=== PATIENT | male | born 1935 | race Caucasian/White ===

== ENCOUNTER 2019-03-02 18:15 | Observation (INO) | payer SELFPAY ==
[~2019-03-02] VITALS: Ht 167.6 cm; Wt 74.8 kg
[2019-03-02] MEDS ORDERED: LEVSOD100 (18:42)
[2019-03-02] MEDS ORDERED: METO50ER PO (18:42)
[2019-03-02 19:24] LABS: Source, Urine Voided
[2019-03-02 19:28] LABS: Appearance, Urine Clear (Clear); Blood, Urine 1+ (Neg); Color, Urine Amber (P-Yellow); Glucose Qualitative, Urine Neg (Neg); Ketones, Urine 1+ (Neg); Leukocyte Esterase, Urine 1+ (Neg); Nitrite, Urine Neg (Neg); Protein, Urine 2+ (Neg); Urobilinogen, Urine 2+ (Normal)
[2019-03-02 19:29] LABS: BASOPHILS ABSOLUTE AUTO 0.01 K/mm3 (0.00-0.23); BASOPHILS PERCENT AUTO 0 % (0-2); EOSINOPHILS ABSOLUTE AUTO 0.02 K/mm3 (0.00-0.68); EOSINOPHILS PERCENT AUTO 0 % (0-6); Hematocrit 41.6 % (37.0-53.0); Hemoglobin 14.1 g/dL (13.5-17.5); IMMATURE GRAN ABSOLUTE AUTO 0.02 K/mm3 (0.00-0.10); IMMATURE GRAN PERCENT AUTO 0 % (0-1); LYMPHOCYTES PERCENT AUTO 4 % (21-46); MONOCYTES ABSOLUTE AUTO 0.11 K/mm3 (0.16-1.47); MONOCYTES PERCENT AUTO 2 % (4-13); Mean Corpuscular HGB 32.3 pg (26.0-34.0); Mean Corpuscular HGB Conc 33.9 g/dL (31.5-36.5); Mean Corpuscular Volume 95 fL (80-100); Mean Platelet Volume 9.8 fL (9.1-12.4); NEUTROPHILS ABSOLUTE AUTO 6.57 K/mm3 (1.96-9.15); NEUTROPHILS PERCENT AUTO 93 % (41-73); Platelet Count 183 K/mm3 (150-400); RDW Coefficient Variation 12.8 % (11.7-14.2); RDW Standard Deviation 44.8 fL (35.1-46.3); Red Blood Cell Count 4.37 M/mm3 (4.30-5.90); White Blood Cell Count 7.03 K/mm3 (4.00-11.30)
[2019-03-02 19:31] LABS: Bilirubin, Urine 1+ (Neg)
[2019-03-02 19:34] LABS: Bacteria Mod /hpf; Mucus Light (0-Heavy); Squamous Epithelial Cells Not Seen /hpf (Few)
[2019-03-02 19:46] LABS: Alanine Aminotransfer (ALT/SGP 350 U/L (12-78); Albumin, Blood 3.3 g/dL (3.4-5.0); Albumin/Globulin Ratio 0.8 (0.8-1.8); Alk Phos 196 U/L (50-136); Anion Gap 8 mmol/L (6-16); Aspartate Aminotrans (AST/SGOT 249 U/L (12-37); Bilirubin, Total 3.9 mg/dL (0.1-1.0); Blood Urea Nitrogen 16 mg/dL (8-24); Bun/Creatinine Ratio 17.3 (12.0-20.0); CO2, Blood 22 mmol/L (21-32); Calcium, Blood 8.5 mg/dL (8.5-10.1); Chloride, Blood 106 mmol/L (98-108); Creatinine, Blood 0.92 mg/dL (0.60-1.20); Globulin, Blood 4.1 g/dL (2.2-4.0); Glomerular Filtration Rate >60 (60-); Glucose, Blood 147 mg/dL (70-99); Potassium, Blood 3.8 mmol/L (3.5-5.5); Sodium, Blood 136 mmol/L (136-145); Total Protein, Blood 7.4 g/dL (6.4-8.2)
[2019-03-02] MEDS ORDERED: METO25 PO (21:23)
[2019-03-02] MEDS ORDERED: Lovastatin20 MG PO (21:23)
[2019-03-02] MEDS ORDERED: OMEPRAZOLE MAGN20 MG PO (21:23)
[2019-03-02] MEDS ORDERED: OMEPRAZOLE MAGN20 MG (21:23)
[2019-03-02] MEDS ORDERED: LEVSOD137 PO (21:23)
[2019-03-02] MEDS ORDERED: TERA5 PO (21:24)
[2019-03-03 02:17] LABS: Adenovirus Not Detected (NOT DETECT); Bordetella pertussis Not Detected (NOT DETECT); Chlamydophila pneumoniae Not Detected (NOT DETECT); Coronavirus 229E Not Detected (NOT DETECT); Coronavirus HKU1 Not Detected (NOT DETECT); Coronavirus NL63 Not Detected (NOT DETECT); Coronavirus OC43 Not Detected (NOT DETECT); Human Metapneumovirus Not Detected (NOT DETECT); Human Rhinovirus/Enterovirus Not Detected (NOT DETECT); Influenza A Not Detected (NOT DETECT); Influenza A/2009-H1 Not Detected (NOT DETECT); Influenza A/H1 Not Detected (NOT DETECT); Influenza A/H3 Not Detected (NOT DETECT); Influenza B Not Detected (NOT DETECT); Mycoplasma pneumoniae Not Detected (NOT DETECT); Parainfluenza Virus 1 Not Detected (NOT DETECT); Parainfluenza Virus 2 Not Detected (NOT DETECT); Parainfluenza Virus 3 Not Detected (NOT DETECT); Parainfluenza Virus 4 Not Detected (NOT DETECT); Respiratory Syncytial Virus Not Detected (NOT DETECT)
--- NOTE | 2019-03-03 04:32 | NUR ---
Shift summary: Pt states he's feeling much better. No abdominal pain or nausea reported. Pt tolerating regular food. Admission completed. Pt to CAT scan last pm for abdominal CT. Pt recieving antibx without problems. Urine tea colored. VSS.
[2019-03-03 04:55] LABS: BASOPHILS ABSOLUTE AUTO 0.02 K/mm3 (0.00-0.23); BASOPHILS PERCENT AUTO 0 % (0-2); EOSINOPHILS ABSOLUTE AUTO 0.04 K/mm3 (0.00-0.68); EOSINOPHILS PERCENT AUTO 0 % (0-6); Hematocrit 36.7 % (37.0-53.0); IMMATURE GRAN ABSOLUTE AUTO 0.05 K/mm3 (0.00-0.10); IMMATURE GRAN PERCENT AUTO 0 % (0-1); LYMPHOCYTES ABSOLUTE AUTO 0.98 K/mm3 (0.84-5.20); LYMPHOCYTES PERCENT AUTO 8 % (21-46); MONOCYTES ABSOLUTE AUTO 0.71 K/mm3 (0.16-1.47); MONOCYTES PERCENT AUTO 6 % (4-13); Mean Corpuscular HGB 31.6 pg (26.0-34.0); Mean Corpuscular HGB Conc 32.7 g/dL (31.5-36.5); Mean Corpuscular Volume 97 fL (80-100); Mean Platelet Volume 9.9 fL (9.1-12.4); NEUTROPHILS ABSOLUTE AUTO 10.49 K/mm3 (1.96-9.15); NEUTROPHILS PERCENT AUTO 85 % (41-73); Platelet Count 153 K/mm3 (150-400); RDW Coefficient Variation 13.1 % (11.7-14.2); RDW Standard Deviation 46.8 fL (35.1-46.3); White Blood Cell Count 12.29 K/mm3 (4.00-11.30)
[2019-03-03 05:10] LABS: Anion Gap 8 mmol/L (6-16); Blood Urea Nitrogen 17 mg/dL (8-24); Bun/Creatinine Ratio 16.5 (12.0-20.0); CO2, Blood 23 mmol/L (21-32); Calcium, Blood 7.7 mg/dL (8.5-10.1); Chloride, Blood 109 mmol/L (98-108); Creatinine, Blood 1.03 mg/dL (0.60-1.20); Glomerular Filtration Rate >60 (60-); Glucose, Blood 185 mg/dL (70-99); Sodium, Blood 140 mmol/L (136-145)
[2019-03-03 05:13] LABS: International Normalized Ratio 1.2; Prothrombin Time Results 12.5 Sec (9.7-11.5)
--- NOTE | 2019-03-03 11:00 | NUR ---
ROUNDED. ISOLATION DC'D BECAUSE STOOL PANEL DC'D. HE DENIES ANY DIARRHEA AT HOME THOUGH STOOL WAS LOOSE. HE JUST HAD A FORMED BROWN BM AND THEN WALKED AROUND THE WHOLE UNIT. NO COMPLAINTS. HOPES TO GO HOME.
--- NOTE | 2019-03-03 15:37 | NUR ---
DISCHARGED TO HOME AT 1435 WITH BELONGINGS AND INSTRUCTIONS. NO NEW MEDICATIONS. NO COMPLAINTS. VERY HAPPY TO GO HOME.
== END 2019-03-03 14:34 | disposition home or self-care (01) ==
LOC: ER 18:15 → MEDS 18:16 → ER 20:56 → MEDS 20:56
PROVIDERS: Emergency Medicine; Nurse Practitioner Acute Care; ADMIT Internal Medicine
DX: R11.2 Nausea with vomiting, unspecified (principal); R19.7 Diarrhea, unspecified; G92 Toxic encephalopathy; A41.9 Sepsis, unspecified organism; R65.10 Systemic inflammatory response syndrome (SIRS) of non-infectious origin without acute organ dysfunction; J18.1 Lobar pneumonia, unspecified organism; E03.9 Hypothyroidism, unspecified; I10 Essential (primary) hypertension; Z79.899 Other long term (current) drug therapy
CPT/HCPCS: 36415; 71046; 74177; 76705; 80048; 80053; 81001; 82550; 83605; 84145; 84443; 85025; 85610; 87086; 87486; 87581; 87633; 87798; 93005; 93010; 96361; 96365; 99285-25; G0378; J0456; J0696; J2765; J7030; J7050; J7120; Q9967

== ENCOUNTER 2020-04-03 05:28 | Day surgery (SDC) | payer OTHER ==
[~2020-04-03] VITALS: Ht 177.8 cm; Wt 84.0 kg
[~2020-04-03 05:28] MED LIST: Aspir 8181 MG PO; LEVSOD100; LEVSOD137 PO; Lovastatin20 MG PO; METO25 PO; METO50ER PO; OMEPRAZOLE MAGN20 MG; OMEPRAZOLE MAGN20 MG PO; TERA5 PO; ZYRTEC10 M2 PO
[2020-04-03] MEDS ORDERED: CLOP75 PO (06:27)
[2020-04-03] MEDS ORDERED: Isosorbide Mono30 MG PO (07:41)
--- NOTE | 2020-04-03 07:48 | NUR ---
DR FARRAR PREVIOUSLY TO BEDSIDE. PLAN FOR POTENTIAL TRANSFER TO [facility] IN [facility] FOR BYPASS SURGERY. PT C/O 01/27 CHEST DISCOMFORT. CONTINUES ON FIRE TECHNICIAN. VSS. TR BAND ON RIGHT WRIST WITH AIR IN, SITE SOFT NON TENDER WITH NO ACTIVE BLEEDING, OOZING, OR PAIN NOTED. PT TOLERATES PO FLUIDS WITH NO DIFFICULTIES. CALL LIGHT IN REACH. WILL CONTINUE TO MONITOR.
--- NOTE | 2020-04-03 09:36 | NUR ---
RIGHT WRIST TR BAND HAS BEEN FULLY DEFLATED, REMAINS ON ALONG WITH ARM BOARD. SITE SOFT NON TENDER WITH NO ACTIVE BLEEDING, OOZING, OR PAIN NOTED. PT REPORTS DECREASED DISCOMFORT IN CHEST. VSS. WILL CONTINUE TO MONITOR.
--- NOTE | 2020-04-03 10:44 | NUR ---
PT MEDICATED WITH SL NITRO FOR 5/[address] PAIN PER DR. FARRAR ORDER. VSS AT THIS TIME. WILL CONTINUE TO MONITOR.
--- NOTE | 2020-04-03 10:55 | NUR ---
PT REPORTS DECREASED CP AT 10/29, "IT'S SLIGHT" NOW C/O HEADACHE. EDUCATED PT ON SIDE EFFECTS RELATED TO NITROGLYCERIN, PT VERBALIZED UNDERSTANDING. PT REMOVED FROM RECLINER AND PLACED ON GUREARTH PER DR FARRAR REQUEST. AT BEDSIDE. AWAITING ROOM ASSIGNMENT FROM CANDACE. CHERIE. CALL LIGHT IN REACH.
--- NOTE | 2020-04-03 13:06 | NUR ---
PT DENIES CP AT THIS TIME. HEPARIN DRIP INFUSING ORDERED. RIGHT WRIST WITH RED CLOTH DOT DRESSING INTACT. ARM BOARD ON FOR SUPPORT. BP ELEVATED, DR FARRAR NOTIFIED. AWAITING NEW ORDERS. PT DENIES ANY NEEDS AT THIS TIME. CALL LIGHT IN REACH.
--- NOTE | 2020-04-03 15:09 | NUR ---
TRANSPORTATION SET UP FOR TRANSFER TO [facility]. RIGHT WRIST REMAINS SOFT NON TENDER WITH NO ACTIVE BLEEDING, OOZING, OR PAIN. ARM BOARD ON FOR SUPPORT. PT'S PERSONAL BELONGINGS PLACED INTO BAGS FOR HIM, PROVIDED WITH SNACK. HEPARIN CONTINUES TO INFUSE. CALL LIGHT IN REACH, AWAITING CALL FROM CANDACE RN TO GIVE REPORT.
--- NOTE | 2020-04-03 15:38 | NUR ---
PT TRANSFERED TO EMS [facility], ALL PERSONAL BELONGINGS SENT WITH PT. REPORT CALLED TO ANTWAN ZAIDI AT [facility]. PT STABLE AT TIME OF TRANSFER.
== END 2020-04-03 16:39 | disposition short-term general hospital (02) ==
LOC: MHTC 05:28
DX: I25.10 Atherosclerotic heart disease of native coronary artery without angina pectoris (principal); I25.82 Chronic total occlusion of coronary artery; T82.855A Stenosis of coronary artery stent, initial encounter; Y83.1 Surgical operation with implant of artificial internal device as the cause of abnormal reaction of the patient, or of later complication, without mention of misadventure at the time of the procedure; E78.5 Hyperlipidemia, unspecified; E03.9 Hypothyroidism, unspecified; Z79.82 Long term (current) use of aspirin; Z79.899 Other long term (current) drug therapy; Z87.891 Personal history of nicotine dependence; E66.3 Overweight; Z68.28 Body mass index [BMI] 28.0-28.9, adult
CPT/HCPCS: 93458; 99152; C1769; C1894; J1644; J2250; J3010; J7030; Q9967

== ENCOUNTER 2024-12-20 16:04 | Inpatient (IN) | payer OTHER ==
[~2024-12-20] VITALS: Ht 177.8 cm; Wt 89.5 kg
[~2024-12-20 16:04] MED LIST changes: +CLOP75 PO; +Isosorbide Mono30 MG PO
[2024-12-20] MEDS ORDERED: Ondansetron HCl 2 MG / ML 2ML Vial IV PRN ×2 (16:20→23:15)
[2024-12-20 16:56] LABS: BASOPHILS ABSOLUTE AUTO 0.04 K/mm3 (0.00-0.23); BASOPHILS PERCENT AUTO 0 % (0-2); EOSINOPHILS ABSOLUTE AUTO 0.01 K/mm3 (0.00-0.68); EOSINOPHILS PERCENT AUTO 0 % (0-6); Hematocrit 43.1 % (37.0-53.0); Hemoglobin 15.1 g/dL (13.5-17.5); IMMATURE GRAN ABSOLUTE AUTO 0.14 K/mm3 (0.00-0.10); IMMATURE GRAN PERCENT AUTO 1 % (0-1); LYMPHOCYTES ABSOLUTE AUTO 0.99 K/mm3 (0.84-5.20); LYMPHOCYTES PERCENT AUTO 4 % (21-46); MONOCYTES ABSOLUTE AUTO 1.65 K/mm3 (0.16-1.47); MONOCYTES PERCENT AUTO 7 % (4-13); Mean Corpuscular HGB 31.5 pg (26.0-34.0); Mean Corpuscular Volume 90 fL (80-100); Mean Platelet Volume 10.1 fL (9.1-12.4); NEUTROPHILS ABSOLUTE AUTO 19.49 K/mm3 (1.96-9.15); NEUTROPHILS PERCENT AUTO 87 % (41-73); Platelet Count 219 K/mm3 (150-400); RDW Coefficient Variation 12.4 % (11.7-14.2); RDW Standard Deviation 41.1 fL (35.1-46.3); Red Blood Cell Count 4.79 M/mm3 (4.30-5.90); White Blood Cell Count 22.32 K/mm3 (4.00-11.30)
[2024-12-20 17:17] LABS: Albumin, Blood 2.9 g/dL (3.4-5.0); Albumin/Globulin Ratio 0.6 (0.8-1.8); Bilirubin, Total 1.2 mg/dL (0.1-1.0); Bun/Creatinine Ratio 16.8 (12.0-20.0); Creatinine, Blood 0.95 mg/dL (0.60-1.20); Globulin, Blood 5.2 g/dL (2.2-4.0); Potassium, Blood 4.3 mmol/L (3.5-5.5); Total Protein, Blood 8.1 g/dL (6.4-8.2)
[2024-12-20] MEDS ORDERED: NS 1,000 ML IV SCH ×2 (18:50→21:00)
[2024-12-20] MEDS ORDERED: Azithromycin 500 MG in NS 250 ML IV ONE (20:10)
[2024-12-20] MEDS ORDERED: CefTRIAXone Sodium 1,000 MG in NS 50 ML IV ONE (20:10)
[2024-12-20] MEDS ORDERED: MetroNIDAZOLE 500MG/NS 100 ml 100 ML IV ONE (20:45)
[2024-12-20] MEDS ORDERED: Metoprolol Tartrate 1 MG/ML 5 ML VIAL IV ONE (21:00)
[2024-12-20] MEDS ORDERED: FentaNYL Citrate 50 MCG/ML 2 ML Injection IV PRN ×2 (21:00→23:20)
[2024-12-20 23:03] LABS: Source, Urine Clean Catch
[2024-12-20] MEDS ORDERED: Morphine Sulfate 4 MG/1 ML Injection IV ONE (23:05)
[2024-12-20 23:06] LABS: Bilirubin, Urine Neg (Neg); Blood, Urine 3+ (Neg); Glucose Qualitative, Urine Neg (Neg); Ketones, Urine 1+ (Neg); Leukocyte Esterase, Urine 1+ (Neg); Nitrite, Urine Neg (Neg); Protein, Urine 2+ (Neg); Urobilinogen, Urine 1+ (Normal)
[2024-12-20] MEDS ORDERED: NS 1,000 ML IV ONE (23:15)
[2024-12-20] MEDS ORDERED: FLU VACC TS2024-25(6MOS UP)/PF 45 MCG/0.5 ML SYRINGE IM ONE (23:15)
[2024-12-20] MEDS ORDERED: Ampicillin Sod/Sulbactam Sod 3 GM in NS 100 ML IV SCH (23:20)
[2024-12-20 23:27] LABS: Appearance, Urine Hazy (Clear); Color, Urine Yellow (P-Yellow); Red Blood Cells, Urine 0-2 /hpf (0-2); White Blood Cells, Urine 0-2 /hpf (0-5)
[2024-12-20 23:28] LABS: Amorphous Light (0-Heavy); Bacteria Rare /hpf; Granular Casts 0-2 /lpf (0); Squamous Epithelial Cells Not Seen /hpf (Few)
[2024-12-21] VITALS (23 sets, daily range): BP systolic 103–156; BP diastolic 62–742
--- NOTE | 2024-12-21 02:14 | NUR ---
ARRIVAL TO PCU ROOM 11 [place] SLIDE OVER TO PCU BED BY 4 STAFF MEMBERS. PATIENT EDUCATED ON UNIT POLICIES AND PRODEDURES, ROUNDING TIMES, CALL LIGHT, AND SAFETY. PT HAVING 6 OUT OF 10 PAIN ON PAIN SCALE, DENIES NEED OF PAIN MEDICATION AT THIS TIME. PATIENT SHOWING AFLUTTER RATE OF 121 AT TIMES TOUCHING THE 140s, NO CHEST PAIN REPORTED. SATTING IN THE LOW 80s ON ARRIVAL PLACED IN 3 LITERS NC. CONTINUS PULSE OX PLACED FOR MONITORING. BED IN LOWEST POSTION FOR SAFETY, CALL LIGHT IN REACH. SURGICAL CONSULT CALLED IN
[2024-12-21] MEDS ORDERED: Metoprolol Tartrate 1 MG/ML 5 ML VIAL IV PRN (02:20)
--- NOTE | 2024-12-21 04:20 | NUR ---
SHIFT SUMMARY PT RESTING IN BED AT THIS TIME, MEDICATED FOR PAIN PER EMAR. HR TOUCHING THE 140s/150s LOPRESSOR PUSH IV GIVEN HR NOW IN THE 90s SHOWING AFIB ON THE MONITOR. BP STABLE. LR INFUSING PER EMAR. BED IN LOWEST POSTION FOR SAFETY, CALL LIGHT IN REACH. WILL CONTINUE WITH PLAN OF CARE AND REPORT TO ONCOMING RN
[2024-12-21 05:00] LABS: BASOPHILS ABSOLUTE AUTO 0.06 K/mm3 (0.00-0.23); BASOPHILS PERCENT AUTO 0 % (0-2); EOSINOPHILS ABSOLUTE AUTO 0.07 K/mm3 (0.00-0.68); EOSINOPHILS PERCENT AUTO 0 % (0-6); Hematocrit 39.9 % (37.0-53.0); Hemoglobin 13.9 g/dL (13.5-17.5); IMMATURE GRAN ABSOLUTE AUTO 0.29 K/mm3 (0.00-0.10); IMMATURE GRAN PERCENT AUTO 1 % (0-1); LYMPHOCYTES ABSOLUTE AUTO 0.66 K/mm3 (0.84-5.20); LYMPHOCYTES PERCENT AUTO 3 % (21-46); MONOCYTES PERCENT AUTO 4 % (4-13); Mean Corpuscular HGB 31.5 pg (26.0-34.0); Mean Corpuscular HGB Conc 34.8 g/dL (31.5-36.5); Mean Corpuscular Volume 91 fL (80-100); Mean Platelet Volume 10.5 fL (9.1-12.4); NEUTROPHILS ABSOLUTE AUTO 20.47 K/mm3 (1.96-9.15); NEUTROPHILS PERCENT AUTO 91 % (41-73); Platelet Count 200 K/mm3 (150-400); RDW Coefficient Variation 12.8 % (11.7-14.2); Red Blood Cell Count 4.41 M/mm3 (4.30-5.90); White Blood Cell Count 22.55 K/mm3 (4.00-11.30)
[2024-12-21 05:54] LABS: Albumin, Blood 2.5 g/dL (3.4-5.0); Albumin/Globulin Ratio 0.6 (0.8-1.8); Bilirubin, Total 4.3 mg/dL (0.1-1.0); Calcium, Blood 8.3 mg/dL (8.5-10.1); Creatinine, Blood 1.12 mg/dL (0.60-1.20); Free Thyroxine 1.08 ng/dL (0.70-1.60); Globulin, Blood 4.5 g/dL (2.2-4.0); Potassium, Blood 4.5 mmol/L (3.5-5.5); Thyroid Stimulating Hormone 4.66 uIU/mL (0.360-4.800)
[2024-12-21] MEDS ORDERED: Omeprazole 20 MG CapCR PO SCH (06:00)
[2024-12-21] MEDS ORDERED: Levothyroxine Sodium 0.137 MG Tab PO SCH (06:00)
[2024-12-21] MEDS ORDERED: Insulin Human Lispro 100 Units/ML 3ML Syringe SC SCH ×2 (06:00→07:30)
[2024-12-21 09:00] LABS: Anti-Xa UFH, PHA Monitoring <0.10 IU/mL; International Normalized Ratio 1.12; Prothrombin Time Results 11.9 Sec (9.7-11.5)
[2024-12-21] MEDS ORDERED: Isosorbide Mononitrate 30 MG TABCR PO SCH (09:00)
[2024-12-21] MEDS ORDERED: Metoprolol Tartrate 25 MG Tab PO SCH (09:00)
[2024-12-21] MEDS ORDERED: Clopidogrel Bisulfate 75 MG Tab PO SCH (09:00)
[2024-12-21] MEDS ORDERED: Aspirin 81 MG TabEC PO SCH (09:00)
--- NOTE | 2024-12-21 10:59 | NUR ---
ASSUMPTION OF CARE: THIS RN TO ASSUME CARE OF PT. REPORT FROM CHEN SANTIAGO. PT RESTING IN BED WITH EQUAL NONLABORED RESPIRATIONS. PT ON 2L NC DUE TO DESAT WHILE SLEEPING PER PACKAGING CLERK RN. PT ON CARDIAC AND VS MONITORING. VSS. NADN. PT SLEEPING BUT EASILY ARROUSABLE. NS RUNNING AT 75ML/HR. PT DENIES ANY NEEDS AT THIS TIME. BED IN LOW POSITION. CALL LIGHT IN REACH.
[2024-12-21] MEDS ORDERED: Indocyanine Green 25 MG Vial IV ONE (11:00)
[2024-12-21] MEDS ORDERED: Atropine Sulfate 0.1 MG/ML 10ML SYR XX ONE (12:09)
[2024-12-21] MEDS ORDERED: DOPamine 400 MG/Dextrose 250 ML Bag IV ONE (12:09)
[2024-12-21] MEDS ORDERED: Lactated Ringer's 1,000 ML IV SCH (15:25)
[2024-12-21] MEDS ORDERED: propofoL 20 ML IV ONE (15:52)
[2024-12-21] MEDS ORDERED: Rocuronium Bromide 10 MG/ML 5ML Injection IV ONE (15:52)
[2024-12-21] MEDS ORDERED: FentaNYL Citrate 50 MCG/ML 2 ML Injection ONE (15:53)
--- NOTE | 2024-12-21 16:32 | NUR ---
PT BROUGHT FROM PCU TO DAY SURGERY FOR PROCEDURE. VSS. PT ON TELE & 2L O2 VIA NC. PT A&OX3. PT ON TELEPHONE TO CONSENT FOR PROCEDURE WITH SURGEON AND ANESTHESIA. PT AND HIS BOTH POOR HISTORIAN ON MEDICATION RECONCILATION. NPO STATUS CONFIRMED WITH PATTERN CHART WRITER. PT HAS 20G IV TO RIGHT AC THAT FLUSHES WELL AND FLOWS TO GRAVITY. PT BELONGINGS LEFT IN PERSONAL ROOM ON PCU.
[2024-12-21] MEDS ORDERED: Bupivacaine 0.5% HCl 5 MG/ML 30MLVIAL ONE (16:40)
[2024-12-21] MEDS ORDERED: Lidocaine HCl 4% 5 ML SDA ONE (16:54)
[2024-12-21] MEDS ORDERED: Sugammadex Sodium 200 MG/2ML SDV (100 MG/ML) ONE (17:50)
--- NOTE | 2024-12-21 18:47 | NUR ---
SHIFT SUMMARY: NEURO: A&OX3. FOLLOWS COMMANDS AND MAKES NEEDS KNOWN TO STAFF. CARDIAC: NSR. DENIES ANY CP. RESP: ON 1L NC DUE TO DESAT WHILE SLEEPING. DENIES ANY SOB. GI/: RAMOS REMAINS IN PLACE AND IS DRAINING DARK GE/RED URINE. PT HAS NOT HAD MUCH URINARY OUTPUT TODAY DISPITE MAINTAINANCE FLUID. PT REPORTS RUQ ABD PAIN THAT WAS RELIEVED WITH PAIN MEDS. PT TAKEN FOR LAPCHOLE THIS AFTERNOON AT APPROX 1550 AND HAS NOT RETURNED BACK TO ROOM AT THIS TIME. NO OTHER SIGNIFICANT EVENTS HAPPENED DURING THIS SHIFT. WILL CONTINUE TO CARE FOR PT TILL END OF SHIFT.
[2024-12-21] MEDS ORDERED: Lactobacil 2-S.Thermo-Bifido 1 1 Cap PO SCH (21:00)
[2024-12-21] MEDS ORDERED: Doxazosin Mesylate 2 MG Tab PO SCH (21:00)
[2024-12-22] VITALS (11 sets, daily range): BP systolic 95–144; BP diastolic 62–84
[2024-12-22 03:45] LABS: Hemoglobin 11.5 g/dL (13.5-17.5); Mean Corpuscular HGB 31.3 pg (26.0-34.0); Mean Corpuscular HGB Conc 33.8 g/dL (31.5-36.5); Mean Corpuscular Volume 92 fL (80-100); Mean Platelet Volume 10.1 fL (9.1-12.4); Platelet Count 191 K/mm3 (150-400); RDW Coefficient Variation 13.2 % (11.7-14.2); RDW Standard Deviation 44.6 fL (35.1-46.3); Red Blood Cell Count 3.68 M/mm3 (4.30-5.90); White Blood Cell Count 15.01 K/mm3 (4.00-11.30)
[2024-12-22 04:06] LABS: Bun/Creatinine Ratio 25.2 (12.0-20.0); Calcium, Blood 7.7 mg/dL (8.5-10.1); Creatinine, Blood 1.23 mg/dL (0.60-1.20); Potassium, Blood 4.6 mmol/L (3.5-5.5)
--- NOTE | 2024-12-22 06:30 | NUR ---
PT STABLE SINCE RETURN FROM SURGERY. PT DID C/O ABD PAIN X1 AND WAS MEDICATED FOR THAT WITH GOOD EFFECT. PT AOX3, ABLE TO MAKE NEEDS KNOWN AND USES CALL LIGHT APPROPRIATELY. PT IS RESIGHINI BUT DOES NOT HAVE HEARING AIDS. PT TOLERATING IV ABX WELL. PT TOLERATING PO FLUIDS WELL. LAP SITES X4 REMAIN CLEAN/DRY/INTACT. LEFT WRIST IV TENDER BUT REMAINS PATENT NO S/S INFILTRATION/LEAKING. SCDS IN PLACE SINCE RETURN FROM OR. RAMOS CONTINUES TO DRAIN WELL AND PT HAD GOOD URINARY OUTPUT. URINE REMAINS GE. BOWEL TONES REMAIN ACTIVE IN ALL QUADRANTS.
[2024-12-22] MEDS ORDERED: Insulin Human Lispro 100 Units/ML 3ML Syringe SC SCH (07:30)
[2024-12-22] MEDS ORDERED: Apixaban 5 MG Tab PO SCH (12:00)
[2024-12-22] MEDS ORDERED: GlipiZIDE 5 MG TabCR PO SCH (12:00)
[2024-12-22 12:16] LABS: Hematocrit 33.5 % (37.0-53.0); Hemoglobin 11.2 g/dL (13.5-17.5)
--- NOTE | 2024-12-22 14:00 | NUR ---
ARRIVAL TO SURGICAL UNIT VIA HOSPITAL BED, ALLOWED TO STAY IN SAME BED. ALERT, ORIENTED. ABD DISTENDED BUT SOFT w/ 4 LAP SITES COVERED w/ WOUND GLUE. LUNGS CLEAR BUT DIM IN R BASE. REPORTS PASSING GAS; DENIES N/V; DISCUSSED ADVANCING DIET TO FULL LQs. WATER & SUGAR FREE PUDDING GIVEN. IV ABX STARTED.
--- NOTE | 2024-12-22 14:00 | NUR ---
SHIFT SUMARY: NO SIGNIFICANT EVENTS HAPPENED DURING THIS SHIFT. PT DENIED [place] COMPLAINTS OR CP, OR SOB. SLIGHT ABD PAIN BUT DID NOT REQUIRE PAIN MEDS. PT TRANSFERED TO SURGICAL FLOOR. BELONGINGS WERE TAKEN WITH PT. REPORT TO MATT Zamudio RN TO ASSUME CARE OF PT.
[2024-12-22] MEDS ORDERED: Docusate Sodium 100 MG Cap PO PRN (16:05)
[2024-12-22] MEDS ORDERED: HYDROcodone 5-APAP 325 TAB PO PRN (16:05)
--- NOTE | 2024-12-22 18:48 | NUR ---
SUMMARY: NO ACUTE CHANGE SINCE RECEIVED REPORT. VSS, PT ABLE TO VOID 100ML DARK URINE. ENCOURAGING PO INTAKE. IV INTIBIOTIC INFUSED. REPORT PASSED TO RYNE SUTHERLAND
[2024-12-23] VITALS (32 sets, daily range): BP systolic 82–138; BP diastolic 61–98
[2024-12-23 04:25] LABS: Hematocrit 32.6 % (37.0-53.0); Hemoglobin 11.1 g/dL (13.5-17.5); Mean Corpuscular HGB 31.5 pg (26.0-34.0); Mean Corpuscular Volume 93 fL (80-100); Mean Platelet Volume 10.2 fL (9.1-12.4); Platelet Count 230 K/mm3 (150-400); RDW Coefficient Variation 13.3 % (11.7-14.2); RDW Standard Deviation 45.1 fL (35.1-46.3); Red Blood Cell Count 3.52 M/mm3 (4.30-5.90)
[2024-12-23 04:53] LABS: Bun/Creatinine Ratio 28.4 (12.0-20.0); Creatinine, Blood 1.02 mg/dL (0.60-1.20); Potassium, Blood 4.2 mmol/L (3.5-5.5)
[2024-12-23] MEDS ORDERED: NS 1,000 ML IV ONE ×2 (06:26→06:33)
[2024-12-23] MEDS ORDERED: Verapamil HCL 2.5 MG/ML 2ML Injection ONE (06:26)
[2024-12-23] MEDS ORDERED: NS 250 ML IV ONE ×2 (06:26→07:52)
[2024-12-23] MEDS ORDERED: Heparin Sodium 1000 Units/ML 10ML MDV ONE ×2 (06:26→07:26)
[2024-12-23] MEDS ORDERED: Nitroglycerin 2 MG/20 ML BTL ONE (06:26)
[2024-12-23] MEDS ORDERED: Midazolam HCl 1MG / ML 2ML Vial ONE (06:32)
[2024-12-23] MEDS ORDERED: FentaNYL Citrate 50 MCG/ML 2 ML Injection ONE (06:32)
[2024-12-23] MEDS ORDERED: Phenylephrine HCl 100 MCG/ML-NS 10MLSYR (1MG/10ML) ONE (06:33)
[2024-12-23] MEDS ORDERED: Atropine Sulfate 0.1 MG/ML 10ML SYR ONE (06:33)
[2024-12-23] MEDS ORDERED: Aspirin 325 MG Tab PO ONE (06:35)
[2024-12-23] MEDS ORDERED: Ticagrelor 90 MG TABLET PO ONE (06:35)
[2024-12-23] MEDS ORDERED: Ticagrelor 90 MG TABLET ONE (06:38)
[2024-12-23] MEDS ORDERED: Aspirin 325 MG Tab ONE (06:38)
--- NOTE | 2024-12-23 06:38 | NUR ---
TRANSFER OFF UNIT BY RTT STAFF AT 0638. REPORT GIVEN TO ICU NURSE TRACY BY THIS RN.
[2024-12-23] MEDS ORDERED: Heparin Sodium 5000 Units/ML 1ML MDV IV ONE (06:40)
[2024-12-23] MEDS ORDERED: Ondansetron HCl 2 MG / ML 2ML Vial ONE (07:11)
[2024-12-23] MEDS ORDERED: Norepinephrine Bitartrate 250 ML IV ONE (07:47)
[2024-12-23] MEDS ORDERED: Amiodarone HCl 50 MG / ML 3 ML Amp ONE (07:51)
[2024-12-23] MEDS ORDERED: NS 100 ML IV ONE (07:52)
[2024-12-23] MEDS ORDERED: Tirofiban HCL Monohydrate 3.75 MG/15 ML Vial ONE (07:55)
[2024-12-23] MEDS ORDERED: Tirofiban HCL M-Hyd/NS 250 ML IV ONE (07:58)
[2024-12-23] MEDS ORDERED: Tirofiban HCL M-Hyd/NS 250 ML IV SCH (08:40)
[2024-12-23] MEDS ORDERED: NS 1,000 ML IV SCH (08:50)
[2024-12-23] MEDS ORDERED: Phentolamine Mesylate 5 MG/2 ML Vial IV SCH (08:55)
[2024-12-23] MEDS ORDERED: Atorvastatin 40 MG Tab PO SCH (09:00)
--- NOTE | 2024-12-23 13:31 | NUR ---
0915: PT RECIEVED FROM AUTO CLOCKS REPAIRER ON BIPAP. VSS; EKG SHOWING AFIB ST ELEVATION FOLLOWING STENT PLACEMENT. IV ACCESS AQUIRED, AMIO GTT STARTED, AGGRASTAT CONTINUED. SLIGHT CHEST/ABD DISCOMFORT, ALL NOTED TO BE STILL FROM AUTO CLOCKS REPAIRER. R GROIN SITE CHECK WDL WITH SMALL AMMOUNT OF BLOOD FROM CATH LABE AND DISTAL PULSES ARE STRONG. 1100: BIPAP WAS ABLE TO COME OFF. PLACED ON 2LNC, URINAL AT BEDSIDE WITH 75 ML VOID. SLIGHT CHEST/ABD DISCOMFORT, SAME BEFORE. GROIN SITE INTACT, DISTAL PULSES FELT. 1315: R GROIN SITE INTACT, SMALL BLOOD NOTED STILL, PATIENT ABLE TO HAVE HOB ELEVATED, LUNCH GIVEN. REMAINS AFIB ON AMIO GTT, 97% ON 2LNC.
[2024-12-23] MEDS ORDERED: CefTRIAXone Sodium 1,000 MG in NS 100 ML IV SCH (14:00)
[2024-12-23] MEDS ORDERED: dexmedeTOMIDine 100 ML IV SCH (16:00)
[2024-12-23] MEDS ORDERED: Furosemide 10 MG / ML 2ML Vial IV SCH (16:00)
--- NOTE | 2024-12-23 16:39 | NUR ---
DR LOYA NOTIFIED OF PATIENT HAVING SOB AND BECOMING AGITATED. PT PLACED ON BIPAP FOR BREATHING SUPPORT, FROM 2LNC. PATIENT AGITATED AND PULLING BIPAP MASK OFF MULTIPLE TIMES, SO BIPAP PLACED ON HOLD FOR NOW. PRECEDEX STARTED AT 0.2 MCG/KG/MIN FOR AGITATION. DR. VERAS AT BEDSIDE, OKAY WITH TREATMENT PLAN.
--- NOTE | 2024-12-23 17:16 | NUR ---
PC NOTE: MET WITH PT IN HIS ROOM. PT IS A/O X 2, SOB AT THIS TIME. RN IS AWARE OF SOB. PT DOES NOT RECALL THE DATE/YEAR. HE BELIEVES IT MIGHT BE OCTOBER. KEPT CONVERSATION QUICK DUE TO HIS SOB. CALLED PT AMITA. SHE REPORTS THEY HAVE BEEN FOR 46 YEARS. DISCUSSED PT SYMPTOMS OF SOB. SHE IS AWARE HE HAD A HEART ATTACK THIS MORNING. DISCUSSED CODE STATUS WITH AMITA. SHE STATED "OH HE NEVER WANTED TO BE A FULL CODE, HE WANTS TO BE A DNR." SHE FURTHER EXPLAINED SHE WAS SHOCKED HE CALLED 911 BECAUSE OF HIS STOMACH PAIN BECAUSE HE TOLD HER HE WOULD NEVER GO TO THE DOCTOR AGAIN. SHE DOES WANT US TO DO ALL TREATMENTS THAT CAN BE DONE BUT DOES NOT WANT CHRISTINA TO HAVE CPR OR BE INTUBATED. SHE STATED "DOING THAT WOULD JUST MAKE THINGS WORSE." SHE STATED SHE IS UNABLE TO COME IN BECAUSE SHE CANNOT DRIVE. SHE LOST HER LICENSE WHEN SHE GOT CATARACTS AND CAN'T SEE WELL ENOUGH AND CANNOT AFFORD CATARACT SURGERY. SHE STATES SHE HAS 2 NIECES THAT CAN BRING HER TO THE HOSPITAL BUT THEY LIVE AND WORK IN [place] [facility] TO ASK THEM FOR A FAVOR. I DID ENCOURAGE HER TO MAKE A VISIT TOMORROW IF SHE IS ABLE TO. CALL PLACED TO DR. LOYA AND HE GAVE PERMISSION TO CHANGE CODE STATUS TO DNR. UPDATED WOODY MONCADA AND CODE STATUS CHANGED TO DNR. DR. LOYA IS AWARE PT IS EXPERIENCING SOB.
[2024-12-23] MEDS ORDERED: Clopidogrel Bisulfate 300 MG Cap PO ONE (19:00)
[2024-12-24] VITALS (22 sets, daily range): BP systolic 92–150; BP diastolic 57–124
[2024-12-24 02:54] LABS: Mean Corpuscular HGB 31.1 pg (26.0-34.0); Mean Corpuscular HGB Conc 33.3 g/dL (31.5-36.5); Mean Corpuscular Volume 93 fL (80-100); Mean Platelet Volume 10.6 fL (9.1-12.4); Platelet Count 261 K/mm3 (150-400); RDW Coefficient Variation 13.4 % (11.7-14.2); RDW Standard Deviation 45.8 fL (35.1-46.3); Red Blood Cell Count 3.22 M/mm3 (4.30-5.90)
[2024-12-24 03:11] LABS: Calcium, Blood 7.8 mg/dL (8.5-10.1); Creatinine, Blood 1.24 mg/dL (0.60-1.20); Magnesium, Blood 2.8 mg/dL (1.6-2.4); Potassium, Blood 4.5 mmol/L (3.5-5.5)
--- NOTE | 2024-12-24 04:15 | NUR ---
SPOKE WITH SAE ABOUT PAUSING AMIODARONE GTT DUE TO PROLONGED QTc. PTS HR AND RHYTHM HAVE BEEN STABLE, HE SAID TO STOP THE GTT AND CAN RESTART IF NEEDED FOR RATE/RHYTHM CONTROL.
--- NOTE | 2024-12-24 05:57 | NUR ---
SHIFT SUMMARY: PT HAS HAD NO COMPLAINT OF CHEST PAIN THROUGHOUT SHIFT. HIS CATH SITE HAD SOME OOZING, NO BRUISING OR TENDERNESS. HE HAS ALTERNATED BETWEEN SINUS RHYTHM AND AFIB, BP REMAINS STABLE. HIS INCISION SITE FROM CHOLECYSTECTOMY ARE CLEAN AND DRY. ABDOMEN IS DISTENDED SOFT AND NONTENDER TO PALPATION. PT COMPLAINED OF SOME ABD PAIN DURING SHIFT THAT RESOLVED. BREATHING IS TACHYPNEIC AND APPEARS LABORED THOUGH PT DENIES DYSPNEA OR SOB. HE WAS ON 2LPM NC THROUGHOUT NIGHT AND TRIALED BIPAP THIS AM BUT HE CONTINUOUSLY REMOVED THE MASK. HE INCREASED IN AGITATION AND COMBATIVENESS THROUGHOUT THE NIGHT DESPITE PRECEDEX GTT. VEST FAM WAS PLACED FOR PATIENT SAFETY. THIS AM HE ALTERNATES BETWEEN SOMNOLENCE AND AGITATION.
[2024-12-24] MEDS ORDERED: Pantoprazole Sodium 20 MG Tab PO SCH (06:00)
[2024-12-24] MEDS ORDERED: Insulin Human Lispro 100 Units/ML 3ML Syringe SC SCH (07:30)
[2024-12-24] MEDS ORDERED: Clopidogrel Bisulfate 300 MG Cap PO ONE (08:00)
[2024-12-24] MEDS ORDERED: Aspirin 81 MG Chew PO SCH (09:00)
[2024-12-24] MEDS ORDERED: Apixaban 5 MG Tab PO SCH (09:00)
[2024-12-24] MEDS ORDERED: Amiodarone HCl 200 MG Tab PO SCH (10:00)
[2024-12-24] MEDS ORDERED: Furosemide 10 MG / ML 2ML Vial IV ONE (12:40)
[2024-12-24 12:58] LABS: Hematocrit 32.9 % (37.0-53.0); Hemoglobin 10.8 g/dL (13.5-17.5)
[2024-12-24] MEDS ORDERED: Morphine Sulfate 20 MG/1ML 1 ML Oral Syringe SL PRN (18:00)
[2024-12-24] MEDS ORDERED: Morphine Sulfate 4 MG/1 ML Injection IV PRN (18:05)
--- NOTE | 2024-12-24 18:41 | NUR ---
Summary. Pt slightly improved from previous reports. Off precedex, using 02 via NC only occasionally for comfort. Pt is impulsive, forgets limitations. Bed alarm on all shift. Able to ambulate with one person standby assist. Pt c/o shortness of breath this shift, roxanol added for air hunger. No acute events this shift, see chart for further details.
[2024-12-24] MEDS ORDERED: Melatonin 3 MG Tab PO SCH (21:00)
[2024-12-25] VITALS (8 sets, daily range): BP systolic 119–154; BP diastolic 73–100
[2024-12-25 03:37] LABS: Hematocrit 30.4 % (37.0-53.0); Hemoglobin 10.4 g/dL (13.5-17.5); Mean Corpuscular HGB 32.1 pg (26.0-34.0); Mean Corpuscular HGB Conc 34.2 g/dL (31.5-36.5); Mean Corpuscular Volume 94 fL (80-100); Mean Platelet Volume 10.7 fL (9.1-12.4); Platelet Count 305 K/mm3 (150-400); RDW Coefficient Variation 13.4 % (11.7-14.2); RDW Standard Deviation 46.2 fL (35.1-46.3); Red Blood Cell Count 3.24 M/mm3 (4.30-5.90); White Blood Cell Count 17.33 K/mm3 (4.00-11.30)
[2024-12-25 03:59] LABS: Bun/Creatinine Ratio 25.9 (12.0-20.0); Creatinine, Blood 1.12 mg/dL (0.60-1.20); Potassium, Blood 3.7 mmol/L (3.5-5.5)
--- NOTE | 2024-12-25 05:21 | NUR ---
TRANSFERRED CARE GAVE REPORT TO CHELI QUINTERO RN IN PCU. CARE TRANSFERRED.
[2024-12-25] MEDS ORDERED: Clopidogrel Bisulfate 75 MG Tab PO SCH (09:00)
[2024-12-25] MEDS ORDERED: Furosemide 10 MG / ML 2ML Vial IV SCH (09:00)
[2024-12-25] MEDS ORDERED: Metoprolol Succinate 25 MG TABCR PO SCH (09:00)
--- NOTE | 2024-12-25 10:07 | NUR ---
am note this rn assumed care at 0700. vital signs stable. tele afib 110s-120s. spo2 >90% on 2l nc. patient is alert and oriented to person, place, and self. patient unable to get correct date/year or knows as to why he is in the hospital. patient is impulsive and will attempt to get out of bed without using call light and does not use call light appropriately to make needs known. patient has intermittent confusion. patient denies pain, chest pain/pressure or shortness of breath. see shift assessment for further detials. md Rinaldi in to see patient and this rn discussed that patient had dried blood in his mouth and up front by his gums and that patient became more confused in the evening. plan of care is up to date.
[2024-12-25] MEDS ORDERED: Lidocaine 2% Viscous Soln 20 ML,Nystatin 100,000 Unit/ml Susp 20 ML,Mag Hydrox/Al Hydro... MT PRN (11:20)
--- NOTE | 2024-12-25 17:03 | NUR ---
shift summary patient neuro remains the same, intermittently confused and needing reeducating on how to use call light. no acute changes this shift. tele afib in the 110s and with activity heart rate increases into the 120s. patient had a shower this afternoon and worked with physical therapy out walking in the hallway. no acute changes this shift. plan remains up to date
[2024-12-26] MEDS ORDERED: OLANZapine 10 MG Vial IM ONE (04:50)
[2024-12-26 04:56] LABS: Hemoglobin 10.5 g/dL (13.5-17.5); Mean Corpuscular HGB 31.2 pg (26.0-34.0); Mean Corpuscular HGB Conc 32.8 g/dL (31.5-36.5); Mean Corpuscular Volume 95 fL (80-100); Mean Platelet Volume 10.6 fL (9.1-12.4); NRBC ABSOLUTE 0.02 K/mm3 (0.00-0.02); NRBC Auto 0.1 /100 WBC (0.0-0.2); Platelet Count 344 K/mm3 (150-400); RDW Coefficient Variation 13.6 % (11.7-14.2); Red Blood Cell Count 3.37 M/mm3 (4.30-5.90); White Blood Cell Count 15.75 K/mm3 (4.00-11.30)
--- NOTE | 2024-12-26 04:58 | NUR ---
UPDATE PATIENT SETTING OFF BED ALARM, PCT AT BEDSIDE ATTEMPTING TO REDIRECT PATIENT. PATIENT HOLLERING AT PCT, GRABBING BELONGINGS AND YELLING "I'M GETTING OUT OF HERE, LET ME GO HOME". MULTIPLE ATTEMPTS TO REDIRECT PATIENT BY STAFF. PATIENT OUT INTO HALLWAY. PATIENT SITTING IN NURSE NONDESTRUCTIVE TESTER ROLLING CHAIR. PATIENT AGITATED AND CONTINUING TO YELL AT STAFF THAT HE WAS LEAVING. SECURITY CALLED FOR ASSISTANCE. SECURITY GOT PATIENT INTO BED. HOSPITALIST SAE GAVE VERBAL ORDER FOR IM ZYPREXA. PATIENT SPEAKING TO ON THE PHONE ATTEMPTING TO CALM PATIENT DOWN. IM ZYOREXA GIVEN. PATIENT MORE REDIRECTABLE AFTER SPEAKING WITH AND AFTER GIVEN ROOT BEER PER REQUEST.
[2024-12-26 05:16] LABS: Bun/Creatinine Ratio 25.2 (12.0-20.0); Calcium, Blood 8.1 mg/dL (8.5-10.1); Creatinine, Blood 1.03 mg/dL (0.60-1.20); Potassium, Blood 3.9 mmol/L (3.5-5.5)
--- NOTE | 2024-12-26 06:44 | NUR ---
ASSUMED CARE AT APPROX 0300. PT RESTING COMFORTABLY IN BED ON RA, SATS ABOVE 90%, BREATHING UNLABORED AND EVEN. PT PROVIDED WITH DECAF COFFEE. COOPERATIVE AND PLEASANT. PT HAS EPISODE OF AGITATION AND UNWILLINGNESS TO COOPERATE WITH CARE AT APPROX 0430 RESULTING IN INTERVENTION BY SECURITY AND ADMINISTRATION OF ZYPREXA. PT NOW RESTING COMFORTABLY IN BED, WATCHING TELEVISION. NO CONCERNS AT THIS TIME.
[2024-12-26] MEDS ORDERED: Amiodarone HCl200 MG PO (08:36)
[2024-12-26] MEDS ORDERED: METO25ER PO (08:36)
[2024-12-26] MEDS ORDERED: ELIQUIS5 M2 PO (08:36)
[2024-12-26] MEDS ORDERED: DOCU100 PO (08:38)
[2024-12-26] MEDS ORDERED: NYSTATIN100000 U10 MT (08:39)
[2024-12-26] MEDS ORDERED: PROBIOTIC1 EA13 PO (08:40)
[2024-12-26] MEDS ORDERED: PANT20 PO (08:43)
[2024-12-26] MEDS ORDERED: CEFU500T30 PO (08:43)
[2024-12-26 09:30] VITALS: BP 104/71
--- NOTE | 2024-12-26 11:19 | NUR ---
ASSUMPTION OF CARE: PATIENT IS ALERT AND ORIENTED X3. ABLE TO MAKE NEEDS KNOWN, STILL IMPULSIVE, HAD A DIFFICULT NIGHT, MUCH BETTER THIS AM. DENIES SOB, CP/PRESSURE. PBVIOUS DYSPNIC WITH EXERTION HOME O2 EVAL HOME WITH HH IS PLAN FOR THE DAY. VSS. ENDORSES PASSING FLATULANCE, HAS BEEN UP TO THE BATHROOM WITH TEACHING FELLOW MULTIPLE TIMES. SYSTOLIC ABOVE 100.HR <120. PLAN OF CARE CONTINUES.
[2024-12-26] MEDS ORDERED: JARDIANCE10 MG PO (12:37)
--- NOTE | 2024-12-26 15:07 | NUR ---
discharge summary: No change in mentation from assumption, however, is becoming more agitate, family at bedside gave discharge instructions to family and patient, patient refused educated, is very disinterested, most likely does not understand severity of situtaion, educated family on severity and discharge instructions. patient denies chest pain pressure or sob. patient iv removed by other RN. Patient on RA and at rest spo2 >92%. Home o2 eval suggested 5l with exertion 0L at rest. patient refused wearing oxygen for this RN. denies acute distress. patient and belongings linecare o2 oxygen and discharge packet placed into family's car and assisted patient into vehicle.
== END 2024-12-26 14:41 | disposition home or self-care (01) | DRG 853 ==
LOC: ER 16:04 → ERHOLD 16:05 → PCU 16:05 → ERHOLD 16:05 → PCU 12-21 01:20 → ICUE 12-21 15:54 → PCU 12-21 15:54 → SURS 12-22 14:08 → ICUE 12-23 07:20 → PCU 12-25 05:18
PROVIDERS: Emergency Medicine; Internal Medicine; Surgery; ADMIT Internal Medicine
PROC: 3E03329 Introduction of Other Anti-infective into Peripheral Vein, Percutaneous Approach (ICD-10-PCS; 2024-12-20)
PROC: 0FT44ZZ Resection of Gallbladder, Percutaneous Endoscopic Approach (ICD-10-PCS; 2024-12-21)
PROC: 8E0W4CZ Robotic Assisted Procedure of Trunk Region, Percutaneous Endoscopic Approach (ICD-10-PCS; 2024-12-21)
PROC: 027034Z Dilation of Coronary Artery, One Artery with Drug-eluting Intraluminal Device, Percutaneous Approach (ICD-10-PCS; principal; 2024-12-23)
PROC: B2111ZZ Fluoroscopy of Multiple Coronary Arteries using Low Osmolar Contrast (ICD-10-PCS; 2024-12-23)
PROC: 4A023N7 Measurement of Cardiac Sampling and Pressure, Left Heart, Percutaneous Approach (ICD-10-PCS; 2024-12-23)
PROC: 3E033XZ Introduction of Vasopressor into Peripheral Vein, Percutaneous Approach (ICD-10-PCS; 2024-12-23)
DX: A41.9 Sepsis, unspecified organism (principal); G92.8 Other toxic encephalopathy; J96.01 Acute respiratory failure with hypoxia; I50.33 Acute on chronic diastolic (congestive) heart failure; R57.0 Cardiogenic shock; I21.19 ST elevation (STEMI) myocardial infarction involving other coronary artery of inferior wall; K82.1 Hydrops of gallbladder; J98.11 Atelectasis; K80.00 Calculus of gallbladder with acute cholecystitis without obstruction; D64.9 Anemia, unspecified; E78.5 Hyperlipidemia, unspecified; I48.91 Unspecified atrial fibrillation; I11.0 Hypertensive heart disease with heart failure; E86.0 Dehydration; B96.20 Unspecified Escherichia coli [E. coli] as the cause of diseases classified elsewhere; I25.10 Atherosclerotic heart disease of native coronary artery without angina pectoris; E03.9 Hypothyroidism, unspecified; K21.9 Gastro-esophageal reflux disease without esophagitis; Z95.1 Presence of aortocoronary bypass graft; K44.9 Diaphragmatic hernia without obstruction or gangrene; Z79.02 Long term (current) use of antithrombotics/antiplatelets; Z79.82 Long term (current) use of aspirin; Z79.890 Hormone replacement therapy; Z79.899 Other long term (current) drug therapy
CPT/HCPCS: 36415; 51702; 51798; 71045; 71260; 74177; 74300; 76705; 76937; 80048; 80053; 81001; 82947; 83036; 83605; 83690; 83735; 83880; 84439; 84443; 84484; 85014; 85018; 85025; 85027; 85347; 85520; 85610; 85730; 87040; 87077; 87186; 88304; 92941; 93005; 93010; 93306; 93308; 93321; 93459; 94760; 94761; 94762; 96365-59; 96367; 96367-59; 96368; 96375-59; 96376; 96376-59; 97116; 97161; 99152; 99153; 99285-25; A9270; C1725; C1760; C1769; C1874; C1887; C1894; G0378; J0282; J0295; J0456; J0461; J0696; J1265; J1644; J1940; J2003; J2250; J2270; J2371; J2405; J2470; J2704; J2760; J3010; J3246; J7030; J7050; J7060; J7120; Q9967

== ENCOUNTER 2024-12-28 16:40 | Inpatient (IN) | payer OTHER ==
[~2024-12-28] VITALS: Ht 177.8 cm; Wt 73.4 kg
[~2024-12-28 16:40] MED LIST changes: +Amiodarone HCl200 MG PO; +CEFU500T30 PO; +DOCU100 PO; +ELIQUIS5 M2 PO; +JARDIANCE10 MG PO; +METO25ER PO; +NYSTATIN100000 U10 MT; +PANT20 PO; +PROBIOTIC1 EA13 PO
[2024-12-28] MEDS ORDERED: NS 1,000 ML IV SCH (17:40)
[2024-12-28 17:58] LABS: Bicarbonate Venous 23.3 mmol/L (24.0-30.0); PCO2 Venous 37.8 mmHg (38-42); pH Blood Venous 7.41 (7.34-7.37)
[2024-12-28 18:01] LABS: BASOPHILS ABSOLUTE AUTO 0.04 K/mm3 (0.00-0.23); BASOPHILS PERCENT AUTO 0 % (0-2); EOSINOPHILS ABSOLUTE AUTO 0.28 K/mm3 (0.00-0.68); EOSINOPHILS PERCENT AUTO 3 % (0-6); Hemoglobin 10.1 g/dL (13.5-17.5); IMMATURE GRAN ABSOLUTE AUTO 0.11 K/mm3 (0.00-0.10); IMMATURE GRAN PERCENT AUTO 1 % (0-1); LYMPHOCYTES ABSOLUTE AUTO 1.18 K/mm3 (0.84-5.20); LYMPHOCYTES PERCENT AUTO 11 % (21-46); MONOCYTES ABSOLUTE AUTO 0.59 K/mm3 (0.16-1.47); MONOCYTES PERCENT AUTO 6 % (4-13); Mean Corpuscular HGB 31.3 pg (26.0-34.0); Mean Corpuscular HGB Conc 32.6 g/dL (31.5-36.5); Mean Corpuscular Volume 96 fL (80-100); Mean Platelet Volume 10.6 fL (9.1-12.4); NEUTROPHILS ABSOLUTE AUTO 8.42 K/mm3 (1.96-9.15); NEUTROPHILS PERCENT AUTO 79 % (41-73); Platelet Count 401 K/mm3 (150-400); RDW Coefficient Variation 14.1 % (11.7-14.2); Red Blood Cell Count 3.23 M/mm3 (4.30-5.90); White Blood Cell Count 10.62 K/mm3 (4.00-11.30)
[2024-12-28 18:26] LABS: Free Thyroxine 1.16 ng/dL (0.70-1.60)
[2024-12-28 18:28] LABS: Albumin, Blood 2.4 g/dL (3.4-5.0); Albumin/Globulin Ratio 0.6 (0.8-1.8); Bilirubin, Total 1.5 mg/dL (0.1-1.0); Bun/Creatinine Ratio 14.8 (12.0-20.0); Calcium, Blood 7.9 mg/dL (8.5-10.1); Creatinine, Blood 1.28 mg/dL (0.60-1.20); Globulin, Blood 4.3 g/dL (2.2-4.0); Potassium, Blood 4.4 mmol/L (3.5-5.5); Thyroid Stimulating Hormone 10.2 uIU/mL (0.360-4.800); Total Protein, Blood 6.7 g/dL (6.4-8.2)
[2024-12-28 18:58] LABS: Influenza A, PCR NEGATIVE (NEGATIVE); Influenza B, PCR NEGATIVE (NEGATIVE); Resp Syncytial Virus, PCR NEGATIVE (NEGATIVE); SARS-Cov-2 (COVID-19) PCR, MMC NEGATIVE (NEGATIVE)
[2024-12-28] MEDS ORDERED: CefTRIAXone Sodium 1,000 MG in NS 100 ML IV ONE (19:40)
[2024-12-28] MEDS ORDERED: Doxycycline Hyclate 100 MG in Dextrose 5% 250 ML IV ONE (19:40)
[2024-12-28 20:16] LABS: Source, Urine Clean Catch
[2024-12-28 20:22] LABS: Appearance, Urine Clear (Clear); Bilirubin, Urine Neg (Neg); Blood, Urine 2+ (Neg); Color, Urine Yellow (P-Yellow); Glucose Qualitative, Urine 4+ (Neg); Ketones, Urine Neg (Neg); Leukocyte Esterase, Urine Neg (Neg); Nitrite, Urine Neg (Neg); Protein, Urine 1+ (Neg); Urobilinogen, Urine NORM (Normal)
[2024-12-28 20:43] LABS: Bacteria Few /hpf; Squamous Epithelial Cells Few /hpf (Few); White Blood Cells, Urine 0-2 /hpf (0-5)
[2024-12-28] MEDS ORDERED: Ondansetron HCl 2 MG / ML 2ML Vial IV PRN (21:05)
[2024-12-28] MEDS ORDERED: Furosemide 10 MG/ML 4ML Vial IV SCH ×2 (22:00)
[2024-12-28] MEDS ORDERED: Dose Adjust by Pharmacy XX STA (22:03)
[2024-12-28] MEDS ORDERED: Heparin Sodium,Porcine/0.5 NS 500 ML IV SCH (22:05)
[2024-12-28 22:07] VITALS: BP 147/76
[2024-12-28 22:43] LABS: Anti-Xa UFH, PHA Monitoring 0.92 IU/mL; International Normalized Ratio 1.26; Prothrombin Time Results 13.3 Sec (9.7-11.5)
[2024-12-28 23:50] VITALS: BP 128/67
--- NOTE | 2024-12-29 01:05 | NUR ---
LATE ADMISSION NOTE. PT AOX2-3, COOPERATIVE, ABLE TO MAKE NEEDS KNOWN. MAINTAINING ADEQUATE SATURATION ON 2-3 L O2 VIA NC. RUNNING SINUS IN THE 80s. VITALS OTHERWISE STABLE. BED ALARM ACTIVE, THUS FAR HAS CALLED APPROPRIATELY FOR ASSISTANCE. EDUCATED PROCESS IMPROVEMENT CONSULTANT LIGHT USE. HAS DENIED PAIN SINCE ARRIVAL. STEADY 1PA TRANSFER TO [facility]. CONTINENT THUS FAR. ADMISSION PROCESS COMPLETED PER PROTOCOL. MOST INFORMATION PULLED OVER FROM RECENT ADMISSION D/T PT BEING MILDLY CONFUSED, POOR HISTORIAN. BED LOCKED IN LOWEST POSITION. CALL LIGHT LEFT WITHIN REACH. CONTINUING TO MONITOR.
[2024-12-29 03:28] LABS: BASOPHILS ABSOLUTE AUTO 0.03 K/mm3 (0.00-0.23); BASOPHILS PERCENT AUTO 0 % (0-2); EOSINOPHILS ABSOLUTE AUTO 0.16 K/mm3 (0.00-0.68); EOSINOPHILS PERCENT AUTO 2 % (0-6); Hemoglobin 9.7 g/dL (13.5-17.5); IMMATURE GRAN ABSOLUTE AUTO 0.08 K/mm3 (0.00-0.10); IMMATURE GRAN PERCENT AUTO 1 % (0-1); LYMPHOCYTES ABSOLUTE AUTO 0.91 K/mm3 (0.84-5.20); LYMPHOCYTES PERCENT AUTO 8 % (21-46); MONOCYTES ABSOLUTE AUTO 0.59 K/mm3 (0.16-1.47); MONOCYTES PERCENT AUTO 5 % (4-13); Mean Corpuscular HGB 30.7 pg (26.0-34.0); Mean Corpuscular HGB Conc 31.3 g/dL (31.5-36.5); Mean Corpuscular Volume 98 fL (80-100); Mean Platelet Volume 10.8 fL (9.1-12.4); NEUTROPHILS ABSOLUTE AUTO 9.13 K/mm3 (1.96-9.15); NEUTROPHILS PERCENT AUTO 84 % (41-73); Platelet Count 372 K/mm3 (150-400); RDW Standard Deviation 49.8 fL (35.1-46.3); Red Blood Cell Count 3.16 M/mm3 (4.30-5.90)
[2024-12-29 03:58] LABS: Albumin, Blood 2.4 g/dL (3.4-5.0); Albumin/Globulin Ratio 0.6 (0.8-1.8); Bun/Creatinine Ratio 15.1 (12.0-20.0); Calcium, Blood 7.3 mg/dL (8.5-10.1); Creatinine, Blood 1.26 mg/dL (0.60-1.20); Free Thyroxine 1.13 ng/dL (0.70-1.60); Globulin, Blood 3.9 g/dL (2.2-4.0); Magnesium, Blood 2.3 mg/dL (1.6-2.4); Potassium, Blood 4.3 mmol/L (3.5-5.5); Total Protein, Blood 6.3 g/dL (6.4-8.2); Triiodothyronine, Free 0.66 pg/mL (2.18-3.98)
[2024-12-29 05:08] VITALS: BP 116/69
--- NOTE | 2024-12-29 05:28 | NUR ---
SHIFT SUMMARY. SHIFT HAS OVERALL BEEN MOSTLY UNREMARKABLE. PT REMAINS CONFUSED, IMPULSIVE, AT TIMES ATTEMPTED OOB DESPITE FALL RISK BUT OVERALL HAS BEEN REDIRECTABLE AND COOPERATIVE WITH CARE. HAS BEEN ABLE TO REST COMFORTABLY THROUGHOUT MOST OF SHIFT. HAS DENIED PAIN THROUGHOUT SHIFT. TROPS HAVE BEEN TRENDING DOWN. HAS MAINTAINED ADEQUATE SATURATION ON 3 L O2 VIA NC. VITALS OTHERWISE STABLE. CONTINUES TO RUN SINUS ON TELE. BED ALARM ACTIVE THROUGHOUT SHIFT. URINE OUTPUT CONSISTENT, CHARTED APPROPRIATELY. BED LOCKED IN LOWEST POSITION. CALL LIGHT LEFT WITHIN REACH. CONTINUING TO MONITOR.
[2024-12-29] MEDS ORDERED: Levothyroxine Sodium 0.137 MG Tab PO SCH (06:00)
[2024-12-29] MEDS ORDERED: Pantoprazole Sodium 20 MG Tab PO SCH (06:00)
[2024-12-29] MEDS ORDERED: Clarify Drug Order XX ONE ×2 (06:25→12:10)
[2024-12-29 07:27] VITALS: BP 136/71
[2024-12-29] MEDS ORDERED: Albuterol 2.5 MG/3 ML VIAL INH PRN (08:35)
[2024-12-29] MEDS ORDERED: Amiodarone HCl 200 MG Tab PO SCH (09:00)
[2024-12-29] MEDS ORDERED: Aspirin 81 MG Chew PO SCH (09:00)
[2024-12-29] MEDS ORDERED: Atorvastatin 40 MG Tab PO SCH (09:00)
[2024-12-29] MEDS ORDERED: Clopidogrel Bisulfate 75 MG Tab PO SCH (09:00)
[2024-12-29 11:31] VITALS: BP 132/74
--- NOTE | 2024-12-29 13:37 | NUR ---
ASSESSED PATIENT. HE IS PLESANT AND CONFUSED AT THIS TIME. DISCUSSED WITH BEDSIDE RN. SHE REPORTED THAT HER EXPERIENCE WITH CONVERSATION WITH THE PATIENT WAS SIMMILAR TO MINE. HE IS DEFERING DECISIONS TO HIS . MET WITH PROVIDER TO DISCUSS PLAN OF CARE. HOSPICE HAD BEEN DISCUSSED ON PRIOR ADMISSION, THEY WERE UNDECIDED AT THAT TIME.
[2024-12-29] MEDS ORDERED: Enoxaparin 80 MG/0.8 ML SYR SC SCH (16:00)
--- NOTE | 2024-12-29 16:51 | NUR ---
SPOKE TO PATIENTS AMITA ON THE PHONE AT LENGTH. SHE IS OPEN TO HOSPICE AN OPTION AFTER DISCHARGE. SHE HAS CONCERNS THAT PATIENT "CHRISTINA" WILL NOT BE AGREEABLE. SHE EXPRESSED THAT SHE IS NOT SURE SHE CAN CARE FOR HIM AT HOME. SHE HAS A LOT OF MEDICAL CONDITIONS OF HER OWN, INCLUDING CANCER, THAT SHE IS NOT RECIEVING TREATMENT FOR. SHE EXPRESSED THAT SHE SHOULD GO ON HOSPICE HERSELF BUT SHE IS CONCERNED FOR WHO WILL TAKE CARE OF CHRISTINA. SHE FEELS IT WOULD BE IN [place] INTEREST TO GO TO A FACILITY WITH HOSPICE SERVICES. WE DISCUSSED PLASTICS FABRICATOR OR [facility] AND WILL HAVE CARE COORDINATION FOLLOW UP WITH THAT PROCESS.
[2024-12-29 16:57] VITALS: BP 123/70
--- NOTE | 2024-12-29 17:10 | NUR ---
End of Shift Pt A&O to self & family. Pt able to make needs known. Pt reports living at home w/ his spouse & states she provides care for him. Pt appears pale, frail & has multiple missing teeth. VSS. Spo2 > 92% on 1-3L NC this shift. Heparin gtt dc'd per MD order. Pt reports feeling overall unwell. PT denies pain & is unable to elaborate or pinpoint what does not feel good, but continues to state "I just don't feel good." Pt sleeping intermittently t/o shift. Echo done this shift. Cardiology & surgery have consulted. Palliative care following.
[2024-12-29] MEDS ORDERED: Vancomycin HCL 1,750 MG in NS 500 ML IV ONE (20:35)
[2024-12-29 20:49] VITALS: BP 127/61
[2024-12-29] MEDS ORDERED: CefTRIAXone Sodium 1,000 MG in NS 100 ML IV SCH (21:00)
[2024-12-29] MEDS ORDERED: CefTRIAXone Sodium 2,000 MG in NS 100 ML IV SCH (21:00)
[2024-12-30] VITALS (7 sets, daily range): BP systolic 109–132; BP diastolic 62–91
[2024-12-30 06:53] LABS: Hematocrit 29.9 % (37.0-53.0); Hemoglobin 9.7 g/dL (13.5-17.5); Mean Corpuscular HGB 31.2 pg (26.0-34.0); Mean Corpuscular HGB Conc 32.4 g/dL (31.5-36.5); Mean Corpuscular Volume 96 fL (80-100); Mean Platelet Volume 10.3 fL (9.1-12.4); Platelet Count 443 K/mm3 (150-400); RDW Coefficient Variation 13.9 % (11.7-14.2); RDW Standard Deviation 47.9 fL (35.1-46.3); Red Blood Cell Count 3.11 M/mm3 (4.30-5.90); White Blood Cell Count 9.68 K/mm3 (4.00-11.30)
[2024-12-30 07:15] LABS: Albumin, Blood 2.4 g/dL (3.4-5.0); Albumin/Globulin Ratio 0.6 (0.8-1.8); Bilirubin, Total 1.1 mg/dL (0.1-1.0); Calcium, Blood 7.7 mg/dL (8.5-10.1); Creatinine, Blood 1.22 mg/dL (0.60-1.20); Globulin, Blood 4.2 g/dL (2.2-4.0); Potassium, Blood 3.7 mmol/L (3.5-5.5); Total Protein, Blood 6.6 g/dL (6.4-8.2)
[2024-12-30] MEDS ORDERED: Empagliflozin 10 MG TAB PO SCH (13:00)
--- NOTE | 2024-12-30 16:32 | NUR ---
REVIEWED CASE WITH PC TEAM. PATIENTS HAS CHF, CKD, ALBUMIM OF 2.4, RECENT LA. CALL PLACED TO PATIENTS AMITA. SHE REPORTS THAT HE HAS A RECENT WEIGHT LOSS OF APPROX 15 LBS OVER PAST MONTH. HIS ORAL INTAKE IS POOR. SHE REPORTED THAT A MONTH AGO HE WAS MOBILE PATIENT HAS HARDLY GOTTEN OUT OF BED. HE HAS BEEN UNABLE TO MEET HIS OWN NEEDS. KPS SCORE IS 40%, PPS SCORE 40%. DISCUSSED WITH BEDSIDE RN, UNCERTIAN IF PATIENT IS DECISIONAL. UPDATED PROVIDER, RACQUEL BOWER ORDERED. PC WILL CONTINUE TO FOLLOW
--- NOTE | 2024-12-30 17:22 | NUR ---
Shift Summary Pt alert & oriented x2-3; orientation wax/wanes at times. Pt had MMSE this evening, results in chart. Pt denies pain, chest pain/pressure, sob, nasuea, and numb/tingling. Spo2 >90% on ra, pt had taken off o2 this am. Tele sinus 70's, bp stable. Abd mild distender, nontender, +bt. Edema note LLE worse than RLE. Other vss. No other acute changes noted. Will continue to monitor.
[2024-12-30] MEDS ORDERED: Apixaban 5 MG Tab PO SCH ×2 (21:00)
[2024-12-30] MEDS ORDERED: Vancomycin HCL 1,250 MG in NS 250 ML IV SCH (21:00)
[2024-12-31] MEDS ORDERED: Morphine Sulfate 10 MG/ML 1MLSYR IV PRN (01:50)
[2024-12-31 03:23] VITALS: BP 126/90
[2024-12-31 04:22] LABS: Hematocrit 32.5 % (37.0-53.0); Hemoglobin 10.3 g/dL (13.5-17.5); Mean Corpuscular HGB 30.5 pg (26.0-34.0); Mean Corpuscular HGB Conc 31.7 g/dL (31.5-36.5); Mean Corpuscular Volume 96 fL (80-100); Mean Platelet Volume 10.3 fL (9.1-12.4); Platelet Count 431 K/mm3 (150-400); Red Blood Cell Count 3.38 M/mm3 (4.30-5.90); White Blood Cell Count 10.57 K/mm3 (4.00-11.30)
[2024-12-31 04:49] LABS: Albumin, Blood 2.5 g/dL (3.4-5.0); Albumin/Globulin Ratio 0.6 (0.8-1.8); Bilirubin, Total 1.3 mg/dL (0.1-1.0); Bun/Creatinine Ratio 18.5 (12.0-20.0); Calcium, Blood 7.9 mg/dL (8.5-10.1); Creatinine, Blood 1.19 mg/dL (0.60-1.20); Globulin, Blood 4.5 g/dL (2.2-4.0); Potassium, Blood 3.4 mmol/L (3.5-5.5)
[2024-12-31] MEDS ORDERED: Potassium Chloride 20 MEQ TabCR PO ONE (07:10)
[2024-12-31] MEDS ORDERED: Spironolactone 25 MG Tab PO SCH (08:00)
[2024-12-31 08:14] VITALS: BP 117/58
[2024-12-31] MEDS ORDERED: Potassium Chloride 20 MEQ TabCR PO SCH (09:00)
[2024-12-31 11:09] VITALS: BP 115/61
[2024-12-31 15:21] VITALS: BP 118/74
--- NOTE | 2024-12-31 16:43 | NUR ---
SHIFT SUMMARY PT A&Ox3, CALLS AND COMMUNICATES NEEDS APPROPRIATELY. FORGETFUL AND POOR HISTORIAN AT TIMES. BP STABLE, SINUS 70's, DENIES CP/PRESSURE. SpO2> 92% RA, DENIES SOB. CONTINENT OF URINE AND BOWEL, 1 ASSIST TO BSC, IND WITH URINAL. NO C/O PAIN. PT REPOSITIONS SELF IN BED. THIS RN UPDATED OVER THE PHONE. NO OTHER EVENTS, WILL REPORT TO ONCOMING RN.
[2024-12-31 20:02] VITALS: BP 109/63
[2024-12-31 23:12] VITALS: BP 128/60
[2025-01-01 03:49] VITALS: BP 120/65
[2025-01-01 04:18] LABS: Hematocrit 34.6 % (37.0-53.0); Hemoglobin 11.1 g/dL (13.5-17.5); Mean Corpuscular HGB 30.8 pg (26.0-34.0); Mean Corpuscular HGB Conc 32.1 g/dL (31.5-36.5); Mean Corpuscular Volume 96 fL (80-100); Mean Platelet Volume 10.3 fL (9.1-12.4); Platelet Count 449 K/mm3 (150-400); RDW Coefficient Variation 13.9 % (11.7-14.2); White Blood Cell Count 9.36 K/mm3 (4.00-11.30)
[2025-01-01 04:40] LABS: Albumin, Blood 2.6 g/dL (3.4-5.0); Albumin/Globulin Ratio 0.6 (0.8-1.8); Bun/Creatinine Ratio 21.9 (12.0-20.0); Calcium, Blood 8.1 mg/dL (8.5-10.1); Creatinine, Blood 1.28 mg/dL (0.60-1.20); Globulin, Blood 4.7 g/dL (2.2-4.0); Potassium, Blood 3.7 mmol/L (3.5-5.5); Total Protein, Blood 7.3 g/dL (6.4-8.2)
--- NOTE | 2025-01-01 05:32 | NUR ---
SHIFT SUMMARY PT HAD AN OVERALL UNEVENTFUL NIGHT. VITALLY STABLE. PLAN FOR HOSPICE PLACEMENT, LIKELY FRIDAY.
[2025-01-01 08:18] VITALS: BP 122/76
--- NOTE | 2025-01-01 11:44 | NUR ---
TRANSFER TO 324 PT A&Ox3, CALLS AND COMMUNICATES NEEDS APPROPRIATELY. FORGETFUL AND POOR HISTORIAN AT TIMES. BP STABLE, SINUS 70's, DENIES CP/PRESSURE. SpO2> 92% RA, DENIES SOB. CONTINENT OF URINE AND BOWEL, 1 ASSIST TO BSC, IND WITH URINAL. NO C/O PAIN. PT REPOSITIONS SELF IN BED. REPORT GIVEN TO MEDICAL FLOOR RN. ALL PT BELONGINGS GATHERED AND PT TRANFERED VIA WHEELCHAIR BY CLINICAL STAFF AT APPROXIMATELY 1130.
--- NOTE | 2025-01-01 11:45 | NUR ---
pt arrived to 324 via wheelchair from pcu, report from Nadira, pt able to tx to bed, a/ox4 but forgetful, oriented to room layout and call system. call light in reach.
--- NOTE | 2025-01-01 18:02 | NUR ---
No acute changes this shift, watching tv, no complaints or needs, call light in reach.
[2025-01-01 19:40] VITALS: BP 86/58
[2025-01-01 20:45] VITALS: BP 89/60
[2025-01-01 21:19] LABS: CK TOTAL 132 U/L (39-308); CK-BB 0 % (0-0); CK-MACRO TYPE I 0 % (0-0); CK-MACRO TYPE II 0 % (0-0); CK-MB 0 % (0-4); CK-MM 100 % (96-100)
[2025-01-02] VITALS (8 sets, daily range): BP systolic 97–130; BP diastolic 61–105
--- NOTE | 2025-01-02 05:00 | NUR ---
SHIFT SUMMARY ALERT,COOPERATIVE, DENIES PAIN/SOB, LUNG SOUNDS DIMINISHED WITH RT SOME WHEEZING NOTED. STS 93% ON ROOM AIR. BP WAS LOW (89/60) AT ONSET OF SHIFT AND SAME WITH RECHECK AFTER [address] FALL WAS NOTIFIED NO NEW ORDERS PO FLUIDS ENCOURAGED. DID REPORT SOME LIGHTHEADED WHEN UP TO BR EARLIER BUT NONE WHILE RESTING IN BED BP WAS 122/73 WITH RECHECK AT 0140, NOT ON TELEMETERY, HR HAS BEEN BETWEEN 92 AND 118 WITH ASSESSMENTS. NO COMPLAINTS VOICED THIS SHIFT, INTERMITTENT MOIST NONPRODUCTIVE COUGH NOTED.
[2025-01-02 06:07] LABS: BASOPHILS ABSOLUTE AUTO 0.03 K/mm3 (0.00-0.23); BASOPHILS PERCENT AUTO 0 % (0-2); EOSINOPHILS ABSOLUTE AUTO 0.02 K/mm3 (0.00-0.68); EOSINOPHILS PERCENT AUTO 0 % (0-6); Hematocrit 32.9 % (37.0-53.0); Hemoglobin 10.8 g/dL (13.5-17.5); IMMATURE GRAN ABSOLUTE AUTO 0.06 K/mm3 (0.00-0.10); IMMATURE GRAN PERCENT AUTO 1 % (0-1); LYMPHOCYTES ABSOLUTE AUTO 1.29 K/mm3 (0.84-5.20); LYMPHOCYTES PERCENT AUTO 12 % (21-46); MONOCYTES ABSOLUTE AUTO 0.94 K/mm3 (0.16-1.47); MONOCYTES PERCENT AUTO 9 % (4-13); Mean Corpuscular HGB Conc 32.8 g/dL (31.5-36.5); Mean Corpuscular Volume 95 fL (80-100); Mean Platelet Volume 10.6 fL (9.1-12.4); NEUTROPHILS PERCENT AUTO 78 % (41-73); Platelet Count 441 K/mm3 (150-400); RDW Standard Deviation 47.4 fL (35.1-46.3); Red Blood Cell Count 3.48 M/mm3 (4.30-5.90); White Blood Cell Count 10.44 K/mm3 (4.00-11.30)
[2025-01-02 06:29] LABS: Albumin, Blood 2.7 g/dL (3.4-5.0); Albumin/Globulin Ratio 0.6 (0.8-1.8); Bilirubin, Total 0.9 mg/dL (0.1-1.0); Bun/Creatinine Ratio 29.3 (12.0-20.0); Calcium, Blood 8.5 mg/dL (8.5-10.1); Creatinine, Blood 1.4 mg/dL (0.60-1.20); Globulin, Blood 4.8 g/dL (2.2-4.0); Potassium, Blood 3.5 mmol/L (3.5-5.5); Total Protein, Blood 7.5 g/dL (6.4-8.2)
--- NOTE | 2025-01-02 08:13 | NUR ---
Pt laying in bed awake a/ox2-3, plesasant and cooperative with care, follows commands well, denies pain, lungs are clear dim in bases, on r/a, resp even and unlabored, no cough noted, hrr, very trace edema noted to b/l le, ppp+1, piv site is clear and patent, btx4, abd flat soft nontender, voids rashi urinal and bathroom, has briefs on as well, skin c/w/d, maew, general weakness, rolando, call light in reach.
[2025-01-02] MEDS ORDERED: Furosemide 40 MG Tab PO SCH (09:00)
--- NOTE | 2025-01-02 11:53 | NUR ---
Orthostatic b/p positive, notified Dr. Meyers, recieved order for a 500ml LR bolus, pt resting in bed, call light in reach.
[2025-01-02] MEDS ORDERED: Lactated Ringer's 500 ML IV SCH (12:00)
--- NOTE | 2025-01-02 17:44 | NUR ---
Pt was dizzy this am and could not even stand to do orthos, he is much better, and ambulated with assist to the bathroom, just a bit unsteady on his feet, he states he is still a bit dizzy but not as bad as before. he did recieve a 500ml bolus, no further changes this shift, call light in reach.
[2025-01-03 03:29] VITALS: BP 138/77
[2025-01-03 06:30] LABS: Bun/Creatinine Ratio 29.1 (12.0-20.0); Creatinine, Blood 1.48 mg/dL (0.60-1.20); Potassium, Blood 3.7 mmol/L (3.5-5.5)
--- NOTE | 2025-01-03 06:49 | NUR ---
SHIFT SUMMARY UNEVENFUL SHIFT, RESTED WELL OVERNIGHT. LUNGS CLEAR,DIM ON R/A. NO SOB. ORIENTED X3, COOPERATIVE WITH CARE, BP IMPROVED THIS MORNING, STILL FEELING VERY WEAK. ORTHOSTATIC PRECAUTIONS RECOMMENDED.
[2025-01-03] MEDS ORDERED: Lactated Ringer's 500 ML IV SCH (08:00)
[2025-01-03 08:37] VITALS: BP 118/78
[2025-01-03 08:42] VITALS: BP 116/84
[2025-01-03 08:44] VITALS: BP 106/69
[2025-01-03 15:50] VITALS: BP 140/82
--- NOTE | 2025-01-03 18:49 | NUR ---
SHIFT SUMMARY PT IS A/OX2-3, CONFUSION TO DATE/TIME AND PERSON AT TIMES. 1 PERSON ASSIST TO BATHROOM WITH FWW. USING URINAL INDEPENDENTLY AT BEDSIDE. PT IS ON RA, SATS >95%. ORTHOSTATIC BLOOD PRESSURES OBTAINED THIS MORNING ALONG WITH 500 ML BOLUS OF LR PER DEC. PT CALLS APPROPRIATELY USING THE CALL LIGHT.
[2025-01-03 19:52] VITALS: BP 140/74
[2025-01-04 01:49] VITALS: BP 136/78
--- NOTE | 2025-01-04 04:19 | NUR ---
SHIFT SUMMARY 89 YR M ADMITTED ON 12/28/24. DNR. NO ACUTE CHANGES THIS SHIFT. PT HAS MOSTLY SLEPT THROUGH THE NIGHT BUT IS PLEASANT AND COOPERATIVE WITH CARE. CALLS APPROPRIATELY FOR ASSISTANCE AND USES THE URINAL AT BEDSIDE. NO NEW CHANGES TO REPORT. BED IN LOW POSITION AND CALL LIGHT IN REACH.
[2025-01-04 06:00] LABS: Hematocrit 27.9 % (37.0-53.0); Hemoglobin 9.3 g/dL (13.5-17.5); Mean Corpuscular HGB 31.2 pg (26.0-34.0); Mean Corpuscular HGB Conc 33.3 g/dL (31.5-36.5); Mean Corpuscular Volume 94 fL (80-100); Mean Platelet Volume 10.5 fL (9.1-12.4); Platelet Count 347 K/mm3 (150-400); RDW Coefficient Variation 14.1 % (11.7-14.2); RDW Standard Deviation 47.4 fL (35.1-46.3); Red Blood Cell Count 2.98 M/mm3 (4.30-5.90); White Blood Cell Count 6.79 K/mm3 (4.00-11.30)
[2025-01-04 06:22] LABS: Albumin, Blood 2.4 g/dL (3.4-5.0); Albumin/Globulin Ratio 0.6 (0.8-1.8); Bilirubin, Total 0.7 mg/dL (0.1-1.0); Bun/Creatinine Ratio 30.3 (12.0-20.0); Calcium, Blood 7.6 mg/dL (8.5-10.1); Creatinine, Blood 1.32 mg/dL (0.60-1.20); Globulin, Blood 4.2 g/dL (2.2-4.0); Potassium, Blood 3.8 mmol/L (3.5-5.5); Total Protein, Blood 6.6 g/dL (6.4-8.2)
[2025-01-04 07:47] VITALS: BP 130/82
[2025-01-04] MEDS ORDERED: SPIR25 PO (12:21)
[2025-01-04] MEDS ORDERED: ATOR40TA PO (12:21)
[2025-01-04] MEDS ORDERED: METO25ER PO (12:23)
[2025-01-04 15:56] VITALS: BP 124/72
[2025-01-04 19:09] VITALS: BP 112/68
--- NOTE | 2025-01-04 19:13 | NUR ---
SHIFT SUMMARY PT IS A/OX2-3, CONFUSION TO DATE/TIME AND PERSON AT TIMES. 1 PERSON ASSIST WITH FWW. NO ACUTE CHANGES THROUGHOUT THIS SHIFT. PT DECLINING ALL MEALS, DRINKING A CHOCOLATE ENSURE. DISCHARGE ORDERS IN AND COMPLETED. PENDING DISCHARGE TO [facility]. SEE CASE MANAGEMENT NOTE. PT CALLS APPROPRIATELY USING THE CALL LIGHT.
[2025-01-05 02:18] VITALS: BP 139/73
--- NOTE | 2025-01-05 03:16 | NUR ---
SHIFT SUMMARY 89 YR M ADMITTED ON 12/28/24. DNR. NO ACUTE CHANGES THIS SHIFT. PT HAS SLEPT FOR MOST OF THIS SHIFT. NO C/O PAIN OR DISCOMFORT. HE WAKES FOR MEDS THEN GOES RIGHT BACK TO SLEEP. ABLE TO MAKE HIS NEEDS KNOWN. BED IN LOW POSITION AND CALL LIGHT IN REACH.
[2025-01-05 07:46] VITALS: BP 134/80
--- NOTE | 2025-01-05 10:35 | NUR ---
DISCHARGE PT AOX2/3, ABLE TO MAKE NEEDS KNOWN. PT IS 1PERSON TRANSFER TO WHEELCHAIR. ON ROOM AIR. IV DC'D BY THIS RN. PT TO GO TO [facility] FOR HOSPICE. TRANSPORT TOOK DC PAPERWORK. THIS RN ATTEMPTED TO GIVE REPORT TO "DELGADO" AT [facility], INFORMED THIS RN TO "CALL HIM BACK IN 10 MINS".
--- NOTE | 2025-01-05 11:00 | NUR ---
PASSED OFF REPORT TO KEENA YEE [facility]. GAVE SPOUSES PHONE NUMBER WELL.
== END 2025-01-05 10:34 | DRG 280 ==
LOC: ER 16:40 → PCU 21:06 → MEDS 21:06 → PCU 21:44 → MEDS 01-01 11:37 → ENPENDDIS 01-04 16:59 → MEDS 01-05 10:34
PROVIDERS: Emergency Medicine; Nurse Practitioner Acute Care; Student in an Organized Health Care Education/Training Program; ADMIT Internal Medicine
DX: I50.33 Acute on chronic diastolic (congestive) heart failure (principal); I82.0 Budd-Chiari syndrome; I21.4 Non-ST elevation (NSTEMI) myocardial infarction; J96.01 Acute respiratory failure with hypoxia; L03.116 Cellulitis of left lower limb; R62.7 Adult failure to thrive; E03.9 Hypothyroidism, unspecified; E78.5 Hyperlipidemia, unspecified; K21.9 Gastro-esophageal reflux disease without esophagitis; Z51.5 Encounter for palliative care; D64.9 Anemia, unspecified; R31.29 Other microscopic hematuria; I34.0 Nonrheumatic mitral (valve) insufficiency; E88.09 Other disorders of plasma-protein metabolism, not elsewhere classified; I25.10 Atherosclerotic heart disease of native coronary artery without angina pectoris; I48.0 Paroxysmal atrial fibrillation; N40.0 Benign prostatic hyperplasia without lower urinary tract symptoms; N18.31 Chronic kidney disease, stage 3a; I71.43 Infrarenal abdominal aortic aneurysm, without rupture; F03.90 Unspecified dementia, unspecified severity, without behavioral disturbance, psychotic disturbance, mood disturbance, and anxiety; I95.1 Orthostatic hypotension; R26.81 Unsteadiness on feet; Z79.890 Hormone replacement therapy; Z79.899 Other long term (current) drug therapy; Z98.890 Other specified postprocedural states; Z87.19 Personal history of other diseases of the digestive system; Z68.23 Body mass index [BMI] 23.0-23.9, adult; Z90.49 Acquired absence of other specified parts of digestive tract; Z95.5 Presence of coronary angioplasty implant and graft; Z79.82 Long term (current) use of aspirin; Z79.01 Long term (current) use of anticoagulants; Z87.81 Personal history of (healed) traumatic fracture
CPT/HCPCS: 0241U; 36415; 71045; 74177; 80048; 80053; 81001; 82550; 82552; 82803; 83605; 83735; 83880; 84145; 84439; 84443; 84481; 84484; 85025; 85027; 85520; 85610; 85730; 87040; 93005; 93010; 93308; 93321; 94760; 94762; 96360; 96361; 96365; 96366; 96375; 97165; 99285-25; A6590; A9270; J0696; J1644; J1650; J1940; J2270; J2470; J3370; J7030; J7040; J7060; J7120; Q9967